=== PATIENT | female | born 1960 | race Caucasian/White ===

== ENCOUNTER 2023-01-01 17:24 | Emergency (ER) | payer OTHER ==
[2023-01-01 17:45] VITALS: BP 123/75; PULSE 78; RESP 18; TEMP 97.8; BMI 20.9
[2023-01-01] MEDS ORDERED: CEPHALEXIN MONOHYDRATE 500 MG CAPSULE (UD) PO ONE (18:53)
[2023-01-01] MEDS ORDERED: CEPHALEXIN MONOHYDRATE 500 MG CAPSULE (UD) ONE (18:55)
== END 2023-01-01 19:05 | disposition home or self-care (01) ==
LOC: FER 17:24
PROC: 0HQGXZZ Repair Left Hand Skin, External Approach (ICD-10-PCS; principal; 2023-01-01)
DX: S61.211A Laceration without foreign body of left index finger without damage to nail, initial encounter (principal); W23.1XXA Caught, crushed, jammed, or pinched between stationary objects, initial encounter
CPT/HCPCS: 73140-TC-LT-FY; 99283-25